=== PATIENT | male | born 1995 | race Caucasian/White ===

== ENCOUNTER 2025-02-27 15:22 | Outpatient (CLI) | payer BC, SELFPAY ==
--- OUTSIDE RECORDS SUMMARY | 2025-02-27 15:25 | XMS_ITS | Clinical Summary ---
Author Organization Healthcare Address [address] [place] [address] Care Team Providers Care Vp Customer Development Name Role Phone Pcp, No Primary Care Provider Unavailabl e Allergies No known active allergies Medications * This document contains information received from the source organization and may not represent a complete record from that organization. amphetamine-dex troamphetamine XR (Adderall XR) 5 MG 24 hr capsule Take 1 capsule (5 mg) by mouth 1 (one) time each day in the morning. Do not crush or chew. Active amphetamine-dex troamphetamine (Adderall) 5 MG tablet Take 1 tablet (5 mg) by mouth 1 (one) time each day. Active Humira Pen 40 MG/0.4ML Pen-injector Kit 2 Active tretinoin (Retin-A) 0.05 % cream APPLY TO FACE AT BEDTIME 2 Active methocarbamol (Robaxin) 750 MG tablet Take 1 tablet (750 mg total) by mouth 3 (three) times a day for 14 days. 42 tablet 2 Active Additional Information Patient not taking.Reported on 01/14/2022 gabapentin (Neurontin) 100 MG capsule Take 1 capsule (100 mg total) by mouth 3 (three) times a day for 14 days. 42 capsule 2 Active Additional Information Patient not taking.Reported on 01/14/2022 Active Problems Problem Noted Date Diagnosed Date Closed fracture of fourth th oracic vertebra with routine healing 02/19/2022 Closed nondisplaced fracture of seventh cervical vertebra with routine healing 01/14/2022 Immunizations Immunization Administration Dates Next Due Hep A, Adult 09/30/2009,01/03/2008 Hep B, adult 12/26/2019,02/14/2019,05/26/2016 Influenza, injectable, quadr ivalent, preservative free 02/15/2023,02/26/2022 Influenza, seasonal, injecta ble, preservative free 01/25/2024 MMR 02/22/2001,04/24/1997 [employer] COVID-19 Vac cine (Purple Cap) 12+ 09/03/2020,08/13/2020 Tdap 02/03/2017,01/03/2008 Varicella 01/03/2008,04/24/1997 Social History Tobacco Use Types Packs/Day Years Used Date Smoking Tobacco: Never Smokeless Tobacco: Never Tobacco Cessation:Counseling Given: Not Answered Alcohol Use Standard Drinks/Week Comments Yes 0 (1 standard drink = 0.6 oz pur e alcohol) Sex and Gender Information Value Date Recorded Sex Assigned at Male 03/24/2021 7:34 PM EST Legal Sex Male 1:44 PM EDT Gender Identity Male 03/24/2021 7:34 PM EST Sexual Orientation Straight 03/24/2021 7: 34 PM EST Last Filed Vital Signs Vital Sign Reading Time Taken Comments Blood Pressure 142/88 03/16/2024 11:28 AM EDT Pulse 74 03/16/2024 11:28 AM EDT Temperature - - Respiratory Rate - - Oxygen Saturation 96% 02/19/2022 8:53 AM EDT Inhaled Oxygen Concentration - - Weight 79.4 kg (175 lb) 03/16/2024 11:28 AM EDT Height 185.4 cm (6' 1 ) 03/16/2024 11:28 AM EDT Body Mass Index 23.09 03/16/2024 11:28 AM EDT Plan of Treatment Health Maintenance Due Date Last Done Comments [facility]-Depression Screening 1996 [facility]-HIV Screening 1996 [facility]-Hepatitis C Screening 1996 [facility]-Infant/Child/Adol SDOH Screenings 1996 [facility]- SDOH Screenings 2014 [facility]-Adult SDOH Screenings 2014 HPV Vaccines (1 - 3-dose SCDM series) 2023 [id number] Vaccine (3 - season) 2025 09/03/2020, 08/13/2020 [facility]-Influenza Vaccine (#1) 01/15/202501/24, 02/15/2023, 02/26/2022 [facility]-DTaP,Tdap,and Td Vaccines (3 - Td or Tdap) 02/03/2027 02/03/2017, 01/03/2008 [facility]-Zoster Vaccines (1 of 2) 2046, 04/24/1997 [facility]-Varicella Vaccines Completed 8, 04/24/1997 [facility]-Hepatitis A Vaccines Completed 010, 01/03/2008 [facility]-Hepatitis B Vaccines Completed 020, 02/14/2019, 05/26/2016 [facility]-HIB Vaccines Aged Out No longer e ligible based on patient's age to complete this topic [facility]-IPV Vaccines Aged Out No longer e ligible based on patient's age to complete this topic [facility]-Pneumococcal Vaccine: Pediatrics (0 to 5 Years) and At-Risk Patients (6 to 49 Years) Aged Out No longer eligible b ased on patient's age to complete this topic [facility]-Rotavirus Vaccines Aged Out No lo nger eligible based on patient's age to complete this topic Insurance [employer] Care Teams Vp Customer Development Relationship Specialty Start Date End Date Pcp, [address] [place] [address] PCP - General Family Medicine 05/06/21
[2025-02-27 16:02] LABS: Hematocrit 45.4 % (42.0-52.0); Hemoglobin 15.6 g/dL (14.1-18.0); Immature Granulocytes % 0.2 %; Mean Corpuscular HGB Conc 34.4 g/dL (31.8-35.4); Mean Corpuscular Hemoglobin 29.4 pg (27.0-31.2); Mean Corpuscular Volume 85.5 fl (80-94); Nucleated Red Blood Cells % 0 %; Platelet Count 219 K/mm3 (142-424); Red Blood Count 5.31 M/mm3 (4.60-6.20); Red Cell Distribution Width-SD 40.8 fL; White Blood Count 5.7 K/mm3 (4.8-10.8)
[2025-02-27 16:25] LABS: Alanine Aminotransferase 18 U/L (12-78); Albumin Level 4.7 g/dl (3.5-5.0); Albumin/Globulin Ratio 1.7 (1.1-1.8); Alkaline Phosphatase 82 U/L (38-126); Anion Gap 14.4 mEq/L (5-15); Aspartate Amino Transferase 22 U/L (17-59); Bilirubin,Total 1.4 mg/dl (0.2-1.3); Blood Urea Nitrogen 10 mg/dl (9-20); Calcium 9.8 mg/dl (8.4-10.2); Carbon Dioxide 30 mmol/L (22.0-30.0); Chloride 100 mmol/L (98-107); Creatinine,Serum 0.90 mg/dl (0.66-1.25); Estimated Glomerular Filt Rate 100 ml/min (>60); GFR (African American) 122 ML/MIN (>60); Globulin 2.7 g/dL (1.3-3.2); Glucose 101 mg/dl (74-100); Potassium 4.4 mmoL/L (3.5-5.1); Sodium 140 mmol/L (136-145); Total Protein,Serum 7.4 g/dl (6.3-8.2)
[2025-02-27 16:30] LABS: C-Reactive Protein 0.3 mg/L (0-4)
[2025-02-27 16:33] LABS: Iron 152 ug/dL (49-181)
[2025-02-27 16:43] LABS: Total Iron Binding Capacity 337 ug/dL (261-462)
[2025-02-27 17:09] LABS: Ferritin 69.2 ng/ml (17.9-464)
[2025-02-27 17:14] LABS: Vitamin B12 638 pg/mL (239-931)
== END 2025-02-27 23:59 | disposition home or self-care (01) ==
LOC: LAB 15:23
PROVIDERS: Visit Provider Internal Medicine Gastroenterology
DX: K50.00 Crohn's disease of small intestine without complications (principal); K74.69 Other cirrhosis of liver; B19.20 Unspecified viral hepatitis C without hepatic coma
CPT/HCPCS: 36415; 80053; 80145; 82397; 82607; 82652; 82728; 83540; 83550; 85025; 86140